=== PATIENT | male | born 1945 | race Caucasian/White ===

== ENCOUNTER → 2019-10-02 10:00 | Outpatient (BNVA) | payer MEDICARE, MEDICAID, SELFPAY | PROVIDERS: Family Provider Family Medicine; PCP Family Medicine; Visit Provider Family Medicine | DX: I49.3 Ventricular premature depolarization (principal); Z95.0 Presence of cardiac pacemaker; F41.9 Anxiety disorder, unspecified | CPT/HCPCS: 80053; 83735 ==

== ENCOUNTER → 2020-12-30 10:28 | Outpatient (BNVA) | payer MEDICARE, MEDICAID, SELFPAY | PROVIDERS: Family Provider Family Medicine; PCP Family Medicine; Visit Provider Family Medicine | DX: E11.9 Type 2 diabetes mellitus without complications (principal); F41.9 Anxiety disorder, unspecified; Z95.0 Presence of cardiac pacemaker | CPT/HCPCS: 80048; 80061; 83036; 85025 ==

== ENCOUNTER → 2023-10-16 12:41 | Outpatient (BNVA) | payer MEDICARE, MEDICAID, SELFPAY | PROVIDERS: Family Provider Family Medicine; PCP Family Medicine; Visit Provider Nurse Practitioner Family | DX: E11.9 Type 2 diabetes mellitus without complications (principal); I10 Essential (primary) hypertension; E83.42 Hypomagnesemia | CPT/HCPCS: 80053; 80061; 82043; 83036; 83735 ==

== ENCOUNTER → 2024-10-17 10:40 | Outpatient (BNVA) | payer MEDICARE, MEDICAID, SELFPAY | PROVIDERS: Family Provider Family Medicine; PCP Nurse Practitioner Family; Visit Provider Nurse Practitioner Family | DX: I10 Essential (primary) hypertension (principal); E11.9 Type 2 diabetes mellitus without complications; E83.42 Hypomagnesemia; M19.011 Primary osteoarthritis, right shoulder | CPT/HCPCS: 73030; 80053; 80061; 82043; 83036; 83735; 85025 ==

== ENCOUNTER → 2025-03-26 09:45 | Outpatient (BNVA) | payer MEDICARE, MEDICAID, SELFPAY | PROVIDERS: Family Provider Family Medicine; PCP Nurse Practitioner Family; Visit Provider Nurse Practitioner Family | DX: E11.9 Type 2 diabetes mellitus without complications (principal) | CPT/HCPCS: 83036 ==